=== PATIENT | male | born 1970 | race Caucasian/White ===

== ENCOUNTER → 2017-01-16 | Outpatient (CLI) | payer MEDICARE, BC ==
[~2017-01-16] MED LIST: ALDACTONE; ASPIRINEC; COREG; LASIX; LISINOPRIL
[2017-01-16 13:47] LABS: INR 1.6; PROTHROMBIN TIME (PATIENT) 18.6 SECONDS (9.5-12.4)
== END | disposition home or self-care (01) ==
LOC: SLAB 13:14
PROVIDERS: Internal Medicine Cardiovascular Disease
DX: I50.9 Heart failure, unspecified (principal); I42.7 Cardiomyopathy due to drug and external agent; Z95.811 Presence of heart assist device
CPT/HCPCS: 36415; 85610

== ENCOUNTER → 2017-01-23 | Outpatient (CLI) | payer MEDICARE, BC ==
[2017-01-23 10:49] LABS: INR 2.5; PROTHROMBIN TIME (PATIENT) 28.3 SECONDS (9.5-12.4)
== END | disposition home or self-care (01) ==
LOC: STPL 10:22
PROVIDERS: Internal Medicine Cardiovascular Disease
DX: I50.9 Heart failure, unspecified (principal); I42.9 Cardiomyopathy, unspecified; Z95.811 Presence of heart assist device; Z79.01 Long term (current) use of anticoagulants; Z79.899 Other long term (current) drug therapy
CPT/HCPCS: 36415; 85610

== ENCOUNTER → 2017-02-01 | Outpatient (CLI) | payer MEDICARE, BC ==
[2017-02-01 12:38] LABS: INR 2.6; PROTHROMBIN TIME (PATIENT) 29.4 SECONDS (9.5-12.4)
== END | disposition home or self-care (01) ==
LOC: SLAB 12:09
PROVIDERS: Internal Medicine Cardiovascular Disease
DX: I50.9 Heart failure, unspecified (principal); I42.7 Cardiomyopathy due to drug and external agent; Z95.811 Presence of heart assist device; Z79.899 Other long term (current) drug therapy
CPT/HCPCS: 36415; 85610

== ENCOUNTER → 2017-02-22 | Outpatient (CLI) | payer MEDICARE, BC ==
[2017-02-22 13:18] LABS: INR 2.6; PROTHROMBIN TIME (PATIENT) 29.9 SECONDS (9.5-12.4)
== END | disposition home or self-care (01) ==
LOC: STPL 12:46
PROVIDERS: Internal Medicine Cardiovascular Disease
DX: I50.9 Heart failure, unspecified (principal); I42.7 Cardiomyopathy due to drug and external agent; Z95.811 Presence of heart assist device; Z79.899 Other long term (current) drug therapy
CPT/HCPCS: 36415; 85610

== ENCOUNTER → 2017-03-05 | Outpatient (CLI) | payer MEDICARE, BC ==
[2017-03-05 12:21] LABS: PROTHROMBIN TIME (PATIENT) 33.8 SECONDS (9.5-12.4)
== END | disposition home or self-care (01) ==
LOC: STPL 11:55
PROVIDERS: Internal Medicine Cardiovascular Disease
DX: I50.9 Heart failure, unspecified (principal); I42.7 Cardiomyopathy due to drug and external agent; Z95.811 Presence of heart assist device; Z79.899 Other long term (current) drug therapy
CPT/HCPCS: 36415; 85610

== ENCOUNTER → 2017-03-07 | Outpatient (CLI) | payer MEDICARE, BC ==
[2017-03-07 12:55] LABS: INR 2.2; PROTHROMBIN TIME (PATIENT) 24.7 SECONDS (9.5-12.4)
== END | disposition home or self-care (01) ==
LOC: STPL 12:13
PROVIDERS: Internal Medicine Cardiovascular Disease
DX: I50.9 Heart failure, unspecified (principal); I42.7 Cardiomyopathy due to drug and external agent; Z95.811 Presence of heart assist device; Z79.899 Other long term (current) drug therapy
CPT/HCPCS: 36415; 85610

== ENCOUNTER → 2017-03-15 | Outpatient (CLI) | payer MEDICARE, BC ==
[2017-03-15 12:02] LABS: INR 2.1; PROTHROMBIN TIME (PATIENT) 23.8 SECONDS (9.5-12.4)
== END | disposition home or self-care (01) ==
LOC: SLAB 11:37
PROVIDERS: Internal Medicine Cardiovascular Disease
DX: I50.9 Heart failure, unspecified (principal); I42.7 Cardiomyopathy due to drug and external agent; Z95.811 Presence of heart assist device; Z79.899 Other long term (current) drug therapy
CPT/HCPCS: 36415; 85610

== ENCOUNTER → 2017-03-30 | Outpatient (CLI) | payer MEDICARE, BC ==
[2017-03-30 11:17] LABS: INR 3.3; PROTHROMBIN TIME (PATIENT) 37.8 SECONDS (9.5-12.4)
== END | disposition home or self-care (01) ==
LOC: SLAB 10:47
PROVIDERS: Internal Medicine Cardiovascular Disease
DX: I50.9 Heart failure, unspecified (principal); I42.7 Cardiomyopathy due to drug and external agent; Z95.811 Presence of heart assist device; Z79.899 Other long term (current) drug therapy
CPT/HCPCS: 36415; 85610

== ENCOUNTER → 2017-04-13 | Outpatient (CLI) | payer MEDICARE, BC ==
[2017-04-13 14:05] LABS: BASOPHIL# 0.1 X10e3 (0-0.3); EOSINOPHIL# 0.1 X10e3 (0-0.7); HEMATOCRIT 38.1 % (38.0-50.0); HEMOGLOBIN 12.6 gm/dL (13.0-16.0); LYMPHOCYTE% 14.9 % (17.0-45.0); MEAN CELL VOLUME 89.1 FL (83-96); MEAN CORPUSCULAR HEMOGLOBIN 29.4 PG (28-34); MONOCYTE# 0.6 X10e3 (0-1.0); NEUTROPHIL# 5.1 X10e3 (1.5-7.1); NEUTROPHIL% 73.1 % (40-75); PLATELET COUNT 184 X10e3 (140-420); RED BLOOD COUNT 4.28 X10e (3.90-5.60); RED CELL DISTRIBUTION WIDTH 17.6 % (11.0-15.5); WHITE BLOOD COUNT 6.9 X10e3 (4.0-10.5)
[2017-04-13 14:07] LABS: DIFF IND NO
[2017-04-13 14:25] LABS: ALBUMIN SERUM 4.3 g/dL (3.5-5.0); BILIRUBIN,TOTAL 1.1 mg/dL (0.2-2.0); BUN/CREATININE RATIO 23.12; CALCIUM SERUM 9.1 mg/dL (8.4-10.2); CREATININE SERUM 1.6 mg/dL (0.6-1.4); GLOM FILT RATE Estimated 50.9 mL/min (>60); POTASSIUM 4.5 mmol/L (3.5-5.1); PROTEIN TOTAL SERUM 8.1 g/dL (6.0-8.3)
[2017-04-13 14:45] LABS: INR 2.5; PROTHROMBIN TIME (PATIENT) 28.4 SECONDS (9.5-12.4)
== END | disposition home or self-care (01) ==
LOC: STPL 04-12 15:03
PROVIDERS: Internal Medicine Cardiovascular Disease
DX: I50.9 Heart failure, unspecified (principal); I42.7 Cardiomyopathy due to drug and external agent; Z95.811 Presence of heart assist device; Z79.899 Other long term (current) drug therapy
CPT/HCPCS: 36415; 80053; 85025; 85610

== ENCOUNTER → 2017-05-01 | Outpatient (CLI) | payer MEDICARE, BC ==
[2017-05-01 12:12] LABS: INR 3.1; PROTHROMBIN TIME (PATIENT) 35.8 SECONDS (9.5-12.4)
== END | disposition home or self-care (01) ==
LOC: STPL 11:48
PROVIDERS: Internal Medicine Cardiovascular Disease
DX: I50.9 Heart failure, unspecified (principal); I42.7 Cardiomyopathy due to drug and external agent; Z95.811 Presence of heart assist device; Z79.899 Other long term (current) drug therapy
CPT/HCPCS: 36415; 85610

== ENCOUNTER → 2017-05-18 | Outpatient (CLI) | payer MEDICARE, BC ==
[2017-05-18 10:57] LABS: INR 1.6; PROTHROMBIN TIME (PATIENT) 18.6 SECONDS (9.5-12.4)
== END | disposition home or self-care (01) ==
LOC: SLAB 10:28
PROVIDERS: Internal Medicine Cardiovascular Disease
DX: I50.9 Heart failure, unspecified (principal); I42.7 Cardiomyopathy due to drug and external agent; Z95.811 Presence of heart assist device; Z79.899 Other long term (current) drug therapy
CPT/HCPCS: 36415; 80162; 85610

== ENCOUNTER → 2017-06-07 | Outpatient (CLI) | payer MEDICARE, BC ==
[2017-06-07 13:52] LABS: INR 3.1; PROTHROMBIN TIME (PATIENT) 35.3 SECONDS (9.5-12.4)
== END | disposition home or self-care (01) ==
LOC: SLAB 13:13
PROVIDERS: Internal Medicine Hematology & Oncology
DX: I50.9 Heart failure, unspecified (principal); I42.7 Cardiomyopathy due to drug and external agent; Z95.811 Presence of heart assist device; Z79.899 Other long term (current) drug therapy
CPT/HCPCS: 36415; 85610

== ENCOUNTER → 2017-06-22 | Outpatient (CLI) | payer MEDICARE, BC ==
[2017-06-22 12:23] LABS: INR 3.8; PROTHROMBIN TIME (PATIENT) 43.9 SECONDS (9.5-12.4)
== END | disposition home or self-care (01) ==
LOC: STPL 11:54
PROVIDERS: Internal Medicine Cardiovascular Disease
DX: I50.9 Heart failure, unspecified (principal); I42.7 Cardiomyopathy due to drug and external agent; Z95.811 Presence of heart assist device; Z79.899 Other long term (current) drug therapy
CPT/HCPCS: 36415; 85610

== ENCOUNTER → 2017-07-03 | Outpatient (CLI) | payer MEDICARE, BC ==
[2017-07-03 10:41] LABS: INR 3.5; PROTHROMBIN TIME (PATIENT) 40.2 SECONDS (9.5-12.4)
== END | disposition home or self-care (01) ==
LOC: SLAB 10:12
PROVIDERS: Internal Medicine Cardiovascular Disease
DX: Z51.81 Encounter for therapeutic drug level monitoring (principal); I50.9 Heart failure, unspecified; I42.7 Cardiomyopathy due to drug and external agent; Z95.811 Presence of heart assist device; Z79.899 Other long term (current) drug therapy
CPT/HCPCS: 36415; 85610

== ENCOUNTER → 2017-07-20 | Outpatient (CLI) | payer MEDICARE, BC ==
[2017-07-20 12:03] LABS: HEMATOCRIT 39.9 % (38.0-50.0); HEMOGLOBIN 13.4 gm/dL (13.0-16.0); MEAN CELL VOLUME 85.5 FL (83-96); MEAN CORPUSCULAR HEMOGLOBIN 28.7 PG (28-34); MEAN CORPUSCULAR HGB CONC 33.5 g/dL (30-36); MEAN PLATELET VOLUME 8.7 FL (6.5-11.5); RED BLOOD COUNT 4.66 X10e (3.90-5.60); RED CELL DISTRIBUTION WIDTH 18.6 % (11.0-15.5); WHITE BLOOD COUNT 7.1 X10e3 (4.0-10.5)
[2017-07-20 13:20] LABS: INR 2.5; PROTHROMBIN TIME (PATIENT) 28.5 SECONDS (9.5-12.4)
[2017-07-20 13:28] LABS: ALBUMIN SERUM 4.6 g/dL (3.5-5.0); BILIRUBIN,TOTAL 1.4 mg/dL (0.2-2.0); CALCIUM SERUM 9.5 mg/dL (8.4-10.2); CREATININE SERUM 1.5 mg/dL (0.6-1.4); GLOM FILT RATE Estimated 55.1 mL/min (>60); POTASSIUM 3.8 mmol/L (3.5-5.1); PROTEIN TOTAL SERUM 8.1 g/dL (6.0-8.3)
== END | disposition home or self-care (01) ==
LOC: SLAB 11:35
PROVIDERS: Internal Medicine Cardiovascular Disease
DX: I50.9 Heart failure, unspecified (principal); I42.7 Cardiomyopathy due to drug and external agent; Z95.811 Presence of heart assist device; Z79.899 Other long term (current) drug therapy
CPT/HCPCS: 36415; 80053; 85027; 85610

== ENCOUNTER → 2017-08-06 | Outpatient (CLI) | payer MEDICARE, BC ==
[2017-08-06 13:01] LABS: INR 2.6; PROTHROMBIN TIME (PATIENT) 29.4 SECONDS (9.5-12.4)
== END | disposition home or self-care (01) ==
LOC: SLAB 12:30
PROVIDERS: Internal Medicine Cardiovascular Disease
DX: I50.9 Heart failure, unspecified (principal); I42.7 Cardiomyopathy due to drug and external agent; Z95.811 Presence of heart assist device; Z79.899 Other long term (current) drug therapy
CPT/HCPCS: 36415; 85610